=== PATIENT | female | born 1960 | race Caucasian/White ===

== ENCOUNTER 2017-09-04 22:32 | Emergency (ER) | payer MEDICAID ==
[~2017-09-04] VITALS: Ht 165.1 cm; Wt 79.4 kg
[~2017-09-04 22:32] MED LIST: ALPR.5T PO; BACL10TA PO; HYDR1CAP3 PO; MILN50TA6 PO; NF-ESOM40C PO; TRM50T PO; VENL150C PO
[2017-09-04] MEDS ORDERED: NS IV 1000 ML 1,000 ML IV ONE (23:52)
--- NOTE | 2017-09-04 23:55 | ED Cough/URI ---
General Chief Complaint: Coughing up blood Stated Complaint: COUGHING UP BLOOD X1 HR Nursing Triage Note: PT TO ED 8 W/ C/O COUGHING UP BLOOD ONSET 2100. PT REPORTS AT 1200 YESTERDAY, SHE CHOKED ET WAS SEEN AT [facility] AFTER. STATES HAD A CHEST XRAY ET WAS "SCOPED". REPORTS SHE WAS TOLD SHE WAS "OK". PT DENIES ANY OTHER C/O TO THIS RN AT THIS TIME. Source: patient Exam Limitations: no limitations History of Present Illness Date Seen by Provider: Sep 04, 2017 Time Seen by Provider: 23:35 Initial Comments Here with report of coughing up blood tonight. Also had an episode yesterday. States that she feels a gurgling and then concent blood. She was seen at [facility] yesterday and had chest x-ray done that was negative. They also did a looking the upper airway specific head and did not see any active bleeding per the patient. Denies fever or chills. Denies nausea or vomiting. Denies weakness. Timing/Duration: yesterday, intermittent Severity/Quality: dry cough, blood streaked sputum Allergies and Home Medications Allergies Coded Allergies: ciprofloxacin (Unverified Allergy, Severe, TONGUE SWELLING, RASH TO EMERGENCY WITH RXN, 06/16/06) meperidine (Unverified Allergy, Mild, STATES HAD WITH HALCION AT PREVIOUS SURGERY, HARD WAKE UP, 06/16/06) triazolam (Unverified Allergy, Mild, HAD WITH DEMEROL AT PREVIOUS SURGERY , HARD TO WAKE UP, 06/16/06) Home Medications Alprazolam 0.5 Mg Tablet, 1 TAB PO PRN, (Reported) Baclofen 10 Mg Tablet, 1 EACH PO TID PRN, #14 Ref 0 Prescribed by: ISAEL DAVEY on 01/22/11 2306 Esomeprazole Mag Trihydrate 40 Mg Capsule.dr, 1 TAB PO DAILY, (Reported) Hydrocodone Bit/Acetaminophen 1 Each Capsule, 1 TAB PO PRN, (Reported) Milnacipran Hcl 50 Mg Tablet, 2 TAB PO BID, (Reported) Tramadol Hcl 50 Mg Tablet, 1 TAB PO BID, (Reported) Venlafaxine Hcl 150 Mg Cap.sr.24h, 1 TAB PO DAILY, (Reported) Constitutional: see HPI, No chills, No fever EENTM: No epistaxis, No nose congestion, No throat pain, No throat swelling Respiratory: cough, No short of breath Cardiovascular: no symptoms reported Gastrointestinal: No abdominal pain, No nausea, No vomiting Genitourinary: no symptoms reported Musculoskeletal: no symptoms reported All Other Systems Reviewed Negative Unless Noted: Yes Past Vwggdpj-Xgxbly-Trbofi Hx Patient Social History Alcohol Use: Occasionally Uses Recreational Drug Use: No Smoking Status: Former Smoker Former Smoker, Quit: Aug 31, 2015 Recent Foreign Travel: No Contact w/Someone Who Travel: No Recent Infectious Disease Expo: No Recent Hopitalizations: No Physical Abuse: No Sexual Abuse: No Mistreated: No Fear: No Surgeries History of Surgeries: Yes (TOE, LITHOTRIPSY, STONE BASKET) Surgeries: Gallbladder Respiratory History of Respiratory Disorde: Yes Respiratory Disorders: COPD Cardiovascular History of Cardiac Disorders: Yes Cardiac Disorders: Hypertension Neurological History of Neurological Disord: No 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 Genitourinary History of Genitourinary Disor: Yes Genitourinary Disorders: Kidney Stones Gastrointestinal History of Gastrointestinal Di: No Musculoskeletal History of Musculoskeletal Dis: Yes (CHRONIC BACK PAIN) Musculoskeletal Disorders: Fibromyalgia Endocrine History of Endocrine Disorders: Yes ("BORDERLINE DIABETIC") HEENT History of HEENT Disorders: No Cancer History of Cancer: No Psychosocial History of Psychiatric Problem: Yes Behavioral Health Disorders: Depression Suicide Risk Score: 0 Integumentary History of Skin or Integumenta: No Reviewed Nursing Assessment Reviewed/Agree w Nursing PMH: Yes Family Medical History Significant Family History: No Pertinent Family Hx Physical Exam Vital Signs Vital Sign - Last 12Hours 09/04/17 22:47 Temp 98.1 Pulse 103 Resp 20 B/P (MAP) 169/92 (117) Pulse Ox 99 O2 Delivery Room Air Capillary Refill : Less Than 3 Seconds General Appearance: WD/WN, no apparent distress HEENT: PERRL/EOMI, pharynx normal Neck: full range of motion, supple Respiratory: lungs clear, normal breath sounds Cardiovascular: regular rate, rhythm, no murmur Gastrointestinal: non tender, soft Extremities: non-tender, normal inspection Neurologic/Psychiatric: alert, oriented x 3 Skin: normal color, warm/dry Progress/Results/Core Measures Suspected Sepsis Recent Fever Within 48 Hours: No Infection Criteria Present: None New/Unexplained Altered Menta: No Sepsis Screen: No Definite Risk Sepsis Diagnosis: SIRS Temperature:98.1 Pulse: 103 Respiratory Rate: 20 Laboratory Tests 09/05/17 00:07: White Blood Count 12.2H Blood Pressure 169 /92 Mean: 117 Laboratory Tests 09/05/17 00:07: Creatinine 0.73, Platelet Count 245, Total Bilirubin 0.7 Results/Orders Lab Results Laboratory Tests Test 09/05/17 00:07 Range/Units White Blood Count 12.2 H 4.3-11.0 10^3/uL Red Blood Count 4.27 L 4.35-5.85 10^6/uL Hemoglobin 13.5 11.5-16.0 G/DL Hematocrit 39 35-52 % Mean Corpuscular Volume 91 80-99 FL Mean Corpuscular Hemoglobin 32 25-34 PG Mean Corpuscular Hemoglobin Concent 35 32-36 G/DL Red Cell Distribution Width 12.7 10.0-14.5 % Platelet Count 245 130-400 10^3/uL Mean Platelet Volume 11.0 H 7.4-10.4 FL Neutrophils (%) (Auto) 65 42-75 % Lymphocytes (%) (Auto) 26 12-44 % Monocytes (%) (Auto) 7 0-12 % Eosinophils (%) (Auto) 1 0-10 % Basophils (%) (Auto) 0 0-10 % Neutrophils # (Auto) 8.0 H 1.8-7.8 X 10^3 Lymphocytes # (Auto) 3.2 1.0-4.0 X 10^3 Monocytes # (Auto) 0.9 0.0-1.0 X 10^3 Eosinophils # (Auto) 0.1 0.0-0.3 10^3/uL Basophils # (Auto) 0.1 0.0-0.1 10^3/uL Sodium Level 138 135-145 MMOL/L Potassium Level 3.7 3.6-5.0 MMOL/L Chloride Level 103 98-107 MMOL/L Carbon Dioxide Level 24 21-32 MMOL/L Anion Gap 11 5-14 MMOL/L Blood Urea Nitrogen 9 7-18 MG/DL Creatinine 0.73 0.60-1.30 MG/DL Estimat Glomerular Filtration Rate > 60 BUN/Creatinine Ratio 12 Glucose Level 101 70-105 MG/DL Calcium Level 9.5 8.5-10.1 MG/DL Total Bilirubin 0.7 0.1-1.0 MG/DL Aspartate Amino Transf (AST/SGOT) 19 5-34 U/L Alanine Aminotransferase (ALT/SGPT) 20 0-55 U/L Alkaline Phosphatase 78 40-136 U/L Total Protein 7.8 6.4-8.2 GM/DL Albumin 4.6 H 3.2-4.5 GM/DL My Orders Orders - ABIMBOLA KRISHNAMURTHY MD Chest Pa/Lat (2 View) (09/04/17 22:49) Cbc With Automated Diff (09/04/17 23:52) Comprehensive Metabolic Panel (09/04/17 23:52) Saline Lock/Iv-Start (09/04/17 23:52) Ns Iv 1000 Ml (Sodium Chloride 0.9%) (09/04/17 23:52) Ct Angio Chest W (09/05/17 00:00) Iohexol Injection (Omnipaque 350 Mg/Ml 1 (09/05/17 00:45) Pharmacy Communication (Pharmacy Communi (09/05/17 00:35) Ns (Ivpb) (Sodium Chloride 0.9%) (09/05/17 00:45) Medications Given in ED Current Medications Medications Dose Ordered Sig/Jim Route Start Time Stop Time Status Last Admin Dose Admin Iohexol 100 ml ONCE ONCE IV 09/05/17 00:45 18 00:46 DC 09/05/17 00:57 100 ML Sodium Chloride 250 ml ONCE ONCE IV 18 00:45 09/05/17 00:46 DC 09/05/17 00:57 80 ML Sodium Chloride 1,000 ml @ 0 mls/hr Q0M ONCE IV 09/04/17 23:52 09/04/17 23:55 DC 09/05/17 00:13 1,000 MLS/HR Vital Signs/I&O Vital Sign - Last 12Hours 09/04/17 22:47 Temp 98.1 Pulse 103 Resp 20 B/P (MAP) 169/92 (117) Pulse Ox 99 O2 Delivery Room Air Capillary Refill : Less Than 3 Seconds Blood Pressure Mean: 117 Progress Note : Progress Note Seen and evaluated. Two-view chest x-ray ordered. No acute findings. IV, labs and CT angiogram chest ordered. Normal saline 1 L bolus ordered. Monitor patient. 0149: CT complete and shows no acute pulmonary embolism or other surgeons. There is a small hiatal hernia. Patient is not persistently coughing up blood. She was instructed to follow-up with her inorganic chemical technician as well as ENT and surgeon as well for further evaluation to try to find the source of this blood. Discharged home with return precautions. Patient verbalize understanding instructions and agreement with plan. Diagnostic Imaging Diagonstic Imaging: Xray Plain Films/CT/US/NM/MRI: chest Comments No acute findings and two-view chest x-ray Reviewed: Reviewed by Me Diagonstic Imaging: CT Plain Films/CT/US/NM/MRI: chest Comments No evidence of pulmonary embolism. Small hiatal hernia. Reviewed: Reviewed [facility] Study, Reviewed by Me Departure Impression Impression: Primary Impression: Hemoptysis, unspecified Disposition: HOME, SELF-CARE Condition: Improved Departure-Patient Inst. Decision time for Depature: 01:55 Referrals: DEVEN MORALES MICHAEL P MD JENKINS,DINA WEBER MD, DO (PCP) Primary Care Physician Patient Instructions: Coughing up Blood, Hiatal Hernia (DC) Add. Discharge Instructions: All discharge instructions reviewed with patient and/or family. Voiced understanding. Follow-up with your Dr. in a few days for recheck. You may also follow up with Dr. Morales regarding the coughing up blood. You should follow-up with the surgeon listed or the surgeon of your choice as well as the ear nose and throat surgeon listed or ear nose and throat surgeon of your choice for further evaluation to evaluate for source of bleeding that is causing you to cough up blood. Return for worse pain, fever, vomiting, weakness, breathing problems or other concerns as needed. Drink plenty of fluids. Copy Copies To 1: DEVEN MORALES TIMOTHY D MD Sep 04, 2017 23:55
[2017-09-05 00:16] LABS: BASOPHILS # (AUTO) 0.1 10^3/uL (0.0-0.1); BASOPHILS % (AUTO) 0 % (0-10); EOSINOPHILS # (AUTO) 0.1 10^3/uL (0.0-0.3); EOSINOPHILS % (AUTO) 1 % (0-10); HEMATOCRIT 39 % (35-52); HEMOGLOBIN 13.5 G/DL (11.5-16.0); LYMPHOCYTES # (AUTO) 3.2 X 10^3 (1.0-4.0); LYMPHOCYTES % (AUTO) 26 % (12-44); MEAN CORPUSCULAR HEMOGLOBIN 32 PG (25-34); MEAN CORPUSCULAR HGB CONC 35 G/DL (32-36); MEAN CORPUSCULAR VOLUME 91 FL (80-99); MONOCYTES # (AUTO) 0.9 X 10^3 (0.0-1.0); MONOCYTES % (AUTO) 7 % (0-12); NEUTROPHILS % (AUTO) 65 % (42-75); PLATELET COUNT 245 10^3/uL (130-400); RED BLOOD COUNT 4.27 10^6/uL (4.35-5.85); RED CELL DISTRIBUTION WIDTH 12.7 % (10.0-14.5); WHITE BLOOD COUNT 12.2 10^3/uL (4.3-11.0)
[2017-09-05 00:33] LABS: ALANINE AMINOTRANSFERASE 20 U/L (0-55); ALBUMIN 4.6 GM/DL (3.2-4.5); ALKALINE PHOSPHATASE 78 U/L (40-136); BILIRUBIN,TOTAL 0.7 MG/DL (0.1-1.0); BUN/CREATININE RATIO 12; CALCIUM 9.5 MG/DL (8.5-10.1); CARBON DIOXIDE 24 MMOL/L (21-32); CHLORIDE 103 MMOL/L (98-107); CREATININE SERUM 0.73 MG/DL (0.60-1.30); GFR ESTIMATED > 60; GLUCOSE 101 MG/DL (70-105); POTASSIUM 3.7 MMOL/L (3.6-5.0); SODIUM 138 MMOL/L (135-145); TOTAL PROTEIN 7.8 GM/DL (6.4-8.2)
[2017-09-05] MEDS ORDERED: IOHEXOL 350 MG/ML 100 ML (OMNIPAQUE 350) VIAL IV ONE (00:45)
[2017-09-05] MEDS ORDERED: NS 250 ML (IVPB) BAG IV ONE (00:45)
[2017-09-05 02:33] VITALS: BP 159/88
--- NOTE | 2017-09-05 07:34 | Diagnostic Imaging Report ---
INDICATION: Coughing up blood. EXAMINATION: Two-view chest, 09/04/2017. Comparison made to a chest from 04/27/2008. FINDINGS: The cardiomediastinal silhouette is unremarkable. The pulmonary vasculature is within normal limits. The lungs and pleural spaces are clear. IMPRESSION: No evidence of an acute cardiopulmonary process. Dictated by: Dictated on workstation # [id number]
--- NOTE | 2017-09-05 07:42 | Diagnostic Imaging Report ---
PROCEDURE: CT angiography of the chest with contrast. TECHNIQUE: Multiple contiguous axial images were obtained through the chest after uneventful bolus administration of intravenous contrast. Reconstructed CTA MIP acquisitions were also performed. INDICATION: Coughing up blood. EXAMINATION: CTA of the chest dated 09/05/2017 COMPARISONS: None FINDINGS: There are no central or proximal segmental pulmonary emboli. The thoracic aorta is unremarkable. There are no pericardial or pleural effusions. The visualized upper abdominal structures are unremarkable. Evidence of previous cholecystectomy noted. There is also fatty infiltration of the liver. There is no mediastinal or hilar adenopathy. Within the lungs very tiny nodularity image #92 of 172 is noted approximately 4 mm in size. This could be followed in approximately 3 months to assure stability. Mild biapical scarring noted. The left lung is unremarkable. There is no acute osseous abnormality. There is a small hiatal hernia. IMPRESSION: 1. No evidence for pulmonary embolus within the central or proximal segmental arteries. 2. Small nodule in the right lung not mentioned by [facility] report. A followup is recommended to assure stability as noted above. 3. Small hiatal hernia with other incidental findings as noted above. Dictated by: Dictated on workstation # [id number]
== END 2017-09-05 02:33 | disposition home or self-care (01) ==
LOC: EDUNIT# 22:32 → ER 22:36
DX: R04.2 Hemoptysis (principal); J44.9 Chronic obstructive pulmonary disease, unspecified; I10 Essential (primary) hypertension; F32.9 Major depressive disorder, single episode, unspecified; Z88.1 Allergy status to other antibiotic agents; Z88.5 Allergy status to narcotic agent; Z88.8 Allergy status to other drugs, medicaments and biological substances; Z87.891 Personal history of nicotine dependence; Z87.442 Personal history of urinary calculi
CPT/HCPCS: 36415; 71046; 71275; 80053; 85025; 96360; 96361